=== PATIENT | male | born 1995 | race American Indian/Alaskan Native ===

== ENCOUNTER 2018-12-26 14:42 | Emergency (ER) | payer MEDICAID ==
[2018-12-26 14:52] VITALS: BP 132/90; PULSE 73; RESP 18; TEMP 98.1; O2SAT 100
--- NOTE | 2018-12-26 15:24 | C.PDOC ---
History Of Present Illness Patient is a 23 year old male who presents to the ED c/o a new onset general rash and itch since 12/16. Patient states that he had an initial "patch" on his right shoulder that resolved, but now has a general fine rash with itch. He denies any associated symptoms, sick contacts, or travel. NEW ONSET GEN RASH, ITCH SINCE 12/16. INITIAL "PATCH" R SHOULDER, NOW RESOLVED. NOW GENERALIZED FINE RASH. GEN ITCH. NO OTHER ASSOC SX. NO SICK CONTACTS/TRAVEL EXAM NAD SKIN RASH C/W PITYRIASIS ROSEA B/L ARMS, CHEST, BACK. Time Seen by Provider: 12/26/18 14:59 Chief Complaint (Nursing): Abnormal Skin Integrity History Per: Patient History/Exam Limitations: no limitations Onset/Duration Of Symptoms: Days (10) Current Symptoms Are (Timing): Still Present Quality Of Symptoms: Itching Recent travel outside of the [place]: No Additional History Per: Patient Past Medical History Reviewed: Historical Data, Nursing Documentation, Vital Signs Vital Signs: Last Vital Signs Temp 98.1 F 12/26/18 14:49 Pulse 73 12/26/18 14:49 Resp 18 12/26/18 14:49 BP 132/90 12/26/18 14:49 Pulse Ox 100 12/26/18 14:49 - Medical History PMH: No Chronic Diseases Surgical History: No Surg Hx Family History: States: Unknown Family Hx - Social History Hx Alcohol Use: Yes Hx Substance Use: No - Immunization History Hx Tetanus Toxoid Vaccination: Yes Hx Influenza Vaccination: Yes Hx Pneumococcal Vaccination: No Review Of Systems Except As Marked, All Systems Reviewed And Found Negative. Skin: Positive for: Rash (general fine rash with itch) Physical Exam - Physical Exam Appears: Non-toxic, No Acute Distress Skin: Warm, Dry, Rash (c/w pityriasis rosea bilateral arms, chest, back) Head: Atraumatic, Normacephalic Cardiovascular: Rhythm Regular Respiratory: Other (NARD) Neurological/Psych: Oriented x3 ED Course And Treatment O2 Sat by Pulse Oximetry: 100 (on RA) Pulse Ox Interpretation: Normal Disposition Counseled Patient/Family Regarding: Diagnosis, Need For Followup - Disposition Referrals: [facility] [Outside] [facility] [Outside] [facility] [Other] Disposition: HOME/ ROUTINE Disposition Time: 15:22 Condition: GOOD Instructions: Pityriasis Rosea Forms: [facility] (Beninese) - Clinical Impression Clinical Impression: Pityriasis rosea - Scribe Statement The provider has reviewed the documentation as recorded by the Esteeibeduardo Garcia All medical record entries made by the Esteeibe were at my direction and personally dictated by me. I have reviewed the chart and agree that the record accurately reflects my personal performance of the history, physical exam, medical decision making, and the department course for this patient. I have also personally directed, reviewed, and agree with the discharge instructions and disposition.
== END 2018-12-26 15:37 | disposition home or self-care (01) ==
LOC: C.ER 14:42
DX: L42 Pityriasis rosea (principal)